=== PATIENT | male | born 1960 | race Two or more races ===

== ENCOUNTER 2025-04-24 06:00 | Day surgery (SDC) | payer OTHER ==
[2025-04-18 10:44] VITALS: BP 144/82
[2025-04-18 10:46] LABS: URINE APPEARANCE Clear; URINE BILIRRUBIN Negative (NEGATIVE); URINE BLOOD Negative; URINE COLOR Yellow; URINE GLUCOSE Negative (NEGATIVE); URINE KETONE Negative (NEGATIVE); URINE LEUKOCYTE Negative; URINE NITRATE Negative; URINE PROTEIN Negative (NEGATIVE); URINE UROBILINOGEN 0.2 E.U./dl
[2025-04-18 10:52] LABS: URINE RBC 19.0 uL (0.0-20.8)
[2025-04-18 10:53] LABS: URINE BACTERIA 0 uL (0.0-1933); URINE CAST 0.00 uL (0.0-1.40); URINE EPITHELIAL CELLS 1.0 uL (0.0-38.8); URINE WBC 1.3 uL (0.0-23.2)
[2025-04-18 11:01] LABS: BASO % 1.0 % (0.1-1.2); EOS # 0.37 (0.04-0.54); EOS % 3.8 % (0.7-7.0); LYMPH # 3.02 (1.18-3.74); LYMPH % 31.4 % (19.3-53.1); MEAN PLATELET VOLUME 11.10 fl (9.4-12.4); MONO # 0.74 (0.24-0.82); MONO % 7.7 % (4.7-12.5); NEUT # 5.38 (1.56-6.13); NEUT % 55.9 % (34.0-71.1); RED CELL DISTRIBUTION WIDTH 13.5 % (11.6-14.4)
[2025-04-18 11:17] LABS: INR 1.03
[2025-04-18 12:01] LABS: ALT/SGPT 36.0 U/L (12-78); AST/SGOT 22.0 U/L (15-37); BILIRUBIN TOTAL 0.47 mg/dL (0.3-1.2); BUN CREA RATIO 14.0 (7.0-25.0); CREATININE SERUM 0.84 mg/dL (0.70-1.30); GFR 92.59; GLOBULINA 3.3 G/DL (2.4-3.5); GLUCOSE FASTING 107.0 mg/dL (65-100); OSMOLALITY SERUM 281.0 MOSM/KG (275-295)
[~2025-04-24] VITALS: Ht 167.6 cm; Wt 86.6 kg
[~2025-04-24 06:00] MED LIST: HYDRODIURIL12.5 MG PO; LIPITOR40 M1; LOTREL 10-20 M1 EACH PO; PLAVIX75 MG PO; TOPROL XL50 M1 PO
[2025-04-24] MEDS ORDERED: CIPROFLOXACIN IN 5 % DEXTROSE 400 MG/200 ML PIGGYBAG IV ONE (08:45)
[2025-04-24] MEDS ORDERED: LIDOCAINE HCL 1% 20 ML VIAL IJ ONE ×2 (08:45)
== END 2025-04-24 11:50 | disposition home or self-care (01) ==
LOC: CIR.AMB 06:00
PROVIDERS: ATTEND Surgery
DX: D17.1 Benign lipomatous neoplasm of skin and subcutaneous tissue of trunk (principal); Z88.0 Allergy status to penicillin; Z91.041 Radiographic dye allergy status